=== PATIENT | male | born 1970 | race Caucasian/White ===

== ENCOUNTER 2017-10-13 08:51 | Outpatient (CLI) | payer OTHER ==
--- NOTE | 2017-10-13 10:11 | CT ---
CT CHEST WITH IV CONTRAST: HISTORY: Pancreatic cancer. Initial staging. FINDINGS: Each lung is well inflated. No focal mass is apparent. No enlarged lymph nodes are apparent within the mediastinum. Bovine origin of the great vessels from the aortic arch is apparent. Left subclavi an Port-A-Cath is partially visualized. Within the partially visualized upper abdomen, gallstones and enlargement of the spleen are apparent. Heterogeneous low density mass involving the pancreatic body and tail and retroperitoneal adenopath y are partially visualized. IMPRESSION: 1. No CT evidence of metastatic disease of the chest. 2. Abnormalities of the upper abdomen are partially visualized. MRI of the abdomen is pending. POS: [facility]
--- NOTE | 2017-10-13 12:22 | MRI ---
MRI OF THE ABDOMEN WITHOUT AND WITH CONTRAST: Date: 10/13/17 COMPARISON: Report from MRI abdomen dated 08/05/17. 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 TECHNIQUE: Multiplanar, multisequence MR images were obtained of the abdomen without and with IV contrast. FINDINGS: There is a large mass involving the body and tail of the pancreas. This mass currently measures 7.8 x 7.1 x 4.6 cm in size and distorts the anatomy of the pancreas. Compared to the prior report, this ap pears to have decreased in size. There is a nodule near the tail of the pancreas and the splenic hilum. This follows the spleen signal intensity on all obtained sequences and likely represents a splenule measuring 2.1 cm in size. There is a second nodule in the splenic hilum measuring 1.5 cm in size which could represent a small, mild ly enlarged lymph node. There are enlarged lymph nodes seen in the retroperitoneum measuring up to 2. 3 cm in size. No enlarged shady hepatis lymph nodes are seen at this time. There are gallstones in the gallbladder. No suspicious lesions are seen in the liver. The right adren al gland is unremarkable. The left adrenal gland is intimately associated with the pancreatic mass an d there may be involvement of the left adrenal gland by the mass. No focal splenic lesions are seen. No marrow signal abnormality is present. IMPRESSION: 1. Large pancreatic mass likely represents the patient's known neuroendocrine pancreatic cancer. Com pared to the prior report, this mass appears to have decreased in size. 2. Cholelithiasis. 3. Retroperitoneal adenopathy and possible enlarged lymph node in the splenic hilum. POS: [facility]
--- NOTE | 2017-10-13 14:28 | NM ---
RADIONUCLIDE BONE SCAN: Date: 10/13/17 HISTORY: Pancreatic cancer. Initial staging. FINDINGS: Slightly increased uptake involves the shoulder and feet with the appearance of degenerative changes. A single focus of markedly increased radiotracer uptake involves the anterior aspect of the left 6th rib. No fracture is reliably demonstrated on recent CT, although there is very subtle cortical irregu larity. Patient reports recent significant trauma to this area. IMPRESSION: Given the report of recent focal trauma to the left anterior chest, the single focus of abnormal upta ke likely represents a healing fracture of the anterior aspect of the left 6th rib. A solitary metast atic focus would be possible, but less likely. Please consider follow-up bone scan to evaluate for re solution. POS: [facility]
[2017-10-13] MEDS ORDERED: Iopamidol 370 76% 100 ML VIAL ONE (15:45)
== END 2017-10-13 08:52 | disposition home or self-care (01) ==
LOC: CT 08:51
PROVIDERS: ATTEND Internal Medicine Hematology & Oncology
DX: C25.4 Malignant neoplasm of endocrine pancreas (principal); C79.89 Secondary malignant neoplasm of other specified sites; K80.20 Calculus of gallbladder without cholecystitis without obstruction; R59.0 Localized enlarged lymph nodes
CPT/HCPCS: 71260; 74183; 78306; A9503

== ENCOUNTER 2017-12-09 08:35 | Outpatient (CLI) | payer OTHER ==
--- NOTE | 2017-12-09 13:15 | MRI ---
MR ABDOMEN WITH AND WITHOUT CONTRAST: HISTORY: Malignant neoplasm, endocrine/pancreas (C25.4). COMPARISON: MRI from 10/13/2017 TECHNIQUE: Multiplanar, multisequence MRI of the abdomen performed prior to and after the intravenous administra tion of contrast. FINDINGS: Using the same imaging and measurement plane as the comparison examination, the pancreatic body mass, within the posterior perirenal space, measures 4.2 x 2.6 x 3.3 cm (previously, 7.8 x 7.1 x 4.6 cm). This causes a desmoplastic reaction around the posterior pancreatic soft tissues. There is abnormal thickening of the left adrenal gland, which may be involved with a malignant process. The enhancing portion of the malignancy appears to really only measure 2 x 2.3 cm, with the rest of the portion be ing necrotic tissue or desmoplastic reaction. This is best found on the delayed contrast-enhanced se quence. The solid core is decreased from the comparison. The spleen is enlarged, measuring 16 cm in length. A splenule is present. Perirenal adenopathy has slightly improved, with the most prominent retroperitoneal and left periaortic lymph node measuring 1.2 cm in size (previously 1.4 cm, in short axis). The lymph node along the left diaphragmatic crura had previously measured 8 mm in short axis (now approximately 6 mm). The portal vein is patent. There appears to be debris and sludge within the gallbladder with calcified stones. No evidence of hepatic metastatic disease. The IVC is patent. The left and right renal veins are pa tent. The aortic contour is normal. The marrow signal is similar without definite evidence of metas tatic disease. No dilated loops of bowel in the abdomen. No hydronephrosis. No abnormal renal enhancing mass. IMPRESSION: 1. Continued size decrease of the pancreatic tail mass, extending into the posterior perirenal fat a nd enveloping the celiac artery and the splenic artery. The flow void in the splenic artery is maint ained. 2. Interval size decrease of periaortic and left crural adenopathy. 3. Suggestion of possible involvement of the left adrenal gland by malignant process. 4. No evidence of new metastatic disease. Overall, this is an improved study. POS: [facility]
[2017-12-09] MEDS ORDERED: Gadobenate Dimeglumine 529 MG/1 ML (20ML VIAL) ONE (16:24)
== END 2017-12-09 08:36 | disposition home or self-care (01) ==
LOC: MRI 08:35
PROVIDERS: ATTEND Internal Medicine Hematology & Oncology
DX: C25.4 Malignant neoplasm of endocrine pancreas (principal); C79.89 Secondary malignant neoplasm of other specified sites; R59.0 Localized enlarged lymph nodes
CPT/HCPCS: 74183; A9579

== ENCOUNTER 2018-02-16 09:55 | Outpatient (CLI) | payer OTHER ==
--- NOTE | 2018-02-16 13:54 | MRI ---
MRI OF ABDOMEN WITH AND WITHOUT CONTRAST: COMPARISON: Reference is made to prior MRI and CT exams dating back to 10/13/07. CLINICAL HISTORY: Central abdominal mass adjacent the pancreas. History of neuroendocrine tumor, followup. FINDINGS: As previously demonstrated, there is marked abnormal signal abutting the posterior body and extending left laterally to the posterior aspect of the pancreatic tail with a central region of heterogeneous enhancement grossly stable as 2 x 2.2 cm with surrounding relatively nonenhancing soft tissue signal abnormality of the posterior peripancreatic region which again abuts the anterior aspect of the body and lateral limb of the left adrenal gland. A 2.1 cm splenule about the splenic hilar region is sta ble. A 1l5 cm lymph node at the anterior aspect of the splenic hilar region abutting anterior aspect of the distal body and tail region of the pancreas is grossly stable. Left periaortic adenopathy wh ich is in a clustering morphology is grossly stable. Splenomegaly remains. Punctate nonspecific signal alteration of the anterior aspect of the spleen is stable, too small to further characterize. Punctate signal alteration medially within the right hep atic lobe is also stable, too small to further characterize. Infiltration of abnormal peripancreatic signal into the splenic hilar vasculature is grossly stable. Incidental note of cholelithiasis. No obvious focal marrow signal alteration is seen, regionally. S plenic varices remain and there is recanalization of the umbilical vein. Evaluation otherwise grossly stable. IMPRESSION: No significant interval detrimental change with regard to enhancing peripancreatic mass with prominen t surrounding infiltrative signal abnormality which again encases portions of the splenic hilar vascu lature. Surrounding adenopathy, indicating metastatic disease, is similar in appearance. IMPRESSION: 1. Redemonstration of splenomegaly findings that indicate portal hypertension. 2. Cholelithiasis. POS: [facility]
== END 2018-02-16 09:56 | disposition home or self-care (01) ==
LOC: MRI 09:55
PROVIDERS: ATTEND Internal Medicine Hematology & Oncology
DX: C25.4 Malignant neoplasm of endocrine pancreas (principal); C79.89 Secondary malignant neoplasm of other specified sites; R16.1 Splenomegaly, not elsewhere classified; K76.6 Portal hypertension; K80.20 Calculus of gallbladder without cholecystitis without obstruction
CPT/HCPCS: 74183

== ENCOUNTER 2018-04-27 08:40 | Outpatient (CLI) | payer OTHER ==
[2018-04-27] MEDS ORDERED: Gadobenate Dimeglumine 529 MG/1 ML (20ML VIAL) ONE (12:00)
== END 2018-04-27 08:41 | disposition home or self-care (01) ==
LOC: BICMRI 08:40
PROVIDERS: ATTEND Internal Medicine Hematology & Oncology
DX: C25.4 Malignant neoplasm of endocrine pancreas (principal); C79.89 Secondary malignant neoplasm of other specified sites; K86.9 Disease of pancreas, unspecified; I82.890 Acute embolism and thrombosis of other specified veins
CPT/HCPCS: 36415; 74183; 80053; 81003; 82024; 82248; 82533; 83615; 83690; 84100; 84436; 84443; 84550; 85025; A9579

== ENCOUNTER 2018-07-27 08:33 | Outpatient (CLI) | payer OTHER ==
[2018-07-27] MEDS ORDERED: Gadobenate Dimeglumine 529 MG/1 ML (20ML VIAL) ONE (12:07)
--- NOTE | 2018-07-27 12:34 | MRI ---
MRI OF THE PELVIS WITHOUT AND WITH CONTRAST: History: Malignant neoplasm pancreas. Secondary neoplasm of other unspecified sites. Comparison: MRI abdomen, 04-27-18; bone scan, 10-13-17. Technique: Multiplanar, multisequence MR images were obtained of the pelvis without and with IV contr ast. FINDINGS: The prostate is normal in size. No pelvic adenopathy is seen. No pelvic mass is identified. No marrow signal abnormality is present. IMPRESSION: No significant pelvic abnormality. POS: [facility]
--- NOTE | 2018-07-27 13:44 | MRI ---
MRI OF ABDOMEN WITHOUT AND WITH CONTRAST: Date: 07/27/18 COMPARISON: 04/27/18, 02/16/18, 12/09/17, 10/13/17. HISTORY: Neoplasm of exocrine portion of pancreas. Secondary malignant neoplasm of other unspecified site. TECHNIQUE: Multiplanar, multisequence MR images were obtained of the abdomen without and with IV contrast. FINDINGS: An abnormal area of enhancement and abnormal signal is seen along the posterior aspect of the pancrea s extending from the body towards the tail. On the current examination, this measures approximately 5 .4 x 3.2 x 3.3 cm in size. This measures differently than on the prior examination, but the measureme nts were not saved on the prior examinations to determine the exact plane of measurement on the prior examination. Grossly, the mass is similar in size. This mass still encases the celiac artery and abu ts the left adrenal gland. No pancreatic ductal dilatation is seen. The splenic vein cannot be follow ed to the region of the portal vein and is likely occluded by the pancreatic mass. There are prominen t varices in the abdomen. There are gallstones in the gallbladder. A tiny, subcentimeter cyst is seen in the right lobe of the liver. No suspicious enhancing liver lesions are seen. The spleen has decreased in sizes, measuring 1 7.1 cm in length, but is still enlarged. The kidneys and right adrenal gland are unremarkable. No abdominal or pelvic enlarged lymph nodes are seen. The previously seen enlarged lymph node in the retrocaval location shows no enlarged lymph nod e on this examination. Careful inspection of peripancreatic tissues and shady hepatis shows no enlarg ed lymph nodes in these locations. There is a round mass adjacent to the spleen which likely represents a splenule as it follows the sig nal intensity of the spleen on all obtained sequences. This measures 2.1 cm in size. No marrow signal abnormality is present. IMPRESSION: 1. Grossly stable pancreatic mass. 2. 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 3. The mass may involve the left adrenal gland. 4. Cholelithiasis. 5. No abdominal adenopathy. POS: [facility]
== END 2018-07-27 08:34 | disposition home or self-care (01) ==
LOC: BICMRI 08:33
PROVIDERS: ATTEND Internal Medicine Hematology & Oncology
DX: C25.4 Malignant neoplasm of endocrine pancreas (principal); C79.89 Secondary malignant neoplasm of other specified sites; R16.1 Splenomegaly, not elsewhere classified; I81 Portal vein thrombosis; K80.20 Calculus of gallbladder without cholecystitis without obstruction
CPT/HCPCS: 36415; 72197; 74183; 80053; 81001; 82248; 82533; 83615; 83690; 84100; 84436; 84443; 84550; 85025; A9579

== ENCOUNTER 2018-11-23 11:34 | Outpatient (CLI) | payer OTHER ==
[~2018-11-23 11:34] MED LIST: Iopamidol 370 76% 100 ML VIAL ONE
--- NOTE | 2018-11-23 15:21 | CT ---
CT OF THE SOFT TISSUES OF THE NECK AND THORAX WITH IV CONTRAST: INDICATION: History of pancreatic carcinoma status post immunotherapy and pancreatectomy with removal of the left adrenal gland, gallbladder, and spleen. COMPARISON: Prior MRI of the abdomen with and without contrast dated 07/27/[address] of the chest dated 2017. FINDINGS: NECK SOFT TISSUES: There is 1 small right posterior occipital/cervical lymph node on image 9 of series 12 that is not pa thologically enlarged. No pathologically enlarged lymphadenopathy is seen within the neck zones. The parotid, submandibular, and thyroid glands have a normal appearance. The visualized nasopharynx and oropharynx appear within normal limits. The remaining aerodigestive t ract is normal-appearing. THORAX: There is a left chest wall subclavian port projecting into the SVC. No mediastinal or hilar lymphade nopathy is evident. No axillary lymphadenopathy is evident. There is a small left pleural effusion with left basilar atelectasis. No suspicious pulmonary nodule is identified. There is a small calcified granuloma seen within the posterior right lower lobe on i mage 75 of series 2. The visualized upper abdomen demonstrates postsurgical change of a distal pancreatectomy and splenect mirella. There is residual spiculated mass seen just posterior to the pancreatic tail bed likely related to regional spread of disease on image 81 of series 2 measuring 3.8 x 3.8 cm. There is an enlarged precrural retroperitoneal lymph node on image 80 of series 2 measuring 1.6 cm. This previously measured 2.2 cm on the comparison CT evaluation dated 10/13/2017. The paraaortic retroperitoneal lymph nodes are slightly smaller than on the comparison MR examination with a left paraaortic lymph node previously measuring 1.7 cm now measures 1.0 cm on image 95 of ser ies 2. The aorta IVC lymph node measures 1.1 cm where it previously measured 1.2 cm. There is a 6 mm right hepatic lobe hypodensity likely reflecting a small cyst retrospectively seen on the comparison MR examination dated 07/27/2018 on image 18 of series 12. There is some mild inflammatory stranding seen near the operative site of the left upper quadrant. T here is a mild amount of retained stool within the colon. There is some debris within the laparotomy wound bed which is nonspecific and may reflect packing material. No suspicious osteolytic or osteoblastic lesion is grossly evident. There is scattered degenerative and osteoarthritic change. IMPRESSION: 1. No evidence of metastatic disease within the neck or thorax. There is a new small left pleural e ffusion which may be reactive related to patient's previous operative procedure in the left upper flaco drant where there was removal of the spleen and distal pancreas. There is some residual inflammatory stranding seen within the retroperitoneal fat of the left upper quadrant. 2. There is a residual spiculated mass within the left aspect of the anterior pararenal space measur ing 3.8 x 3.1 cm suspicious for residual malignancy within the pancreatic bed. 3. The enlarged lymph nodes of the upper retroperitoneum are slightly smaller than on comparison exa mination and may reflect sequelae of response to therapy. 4. Open laparotomy within the anterior abdominal wall with slightly hyperdense debris seen within th e wound that may reflect topical medication or packing material within the open wound. Recommend cor relation with the clinical exam. 5. Right hepatic cyst. POS: [facility]
== END 2018-11-23 11:35 | disposition home or self-care (01) ==
LOC: CT 11:34
PROVIDERS: ATTEND Internal Medicine Hematology & Oncology
DX: C25.4 Malignant neoplasm of endocrine pancreas (principal); C79.89 Secondary malignant neoplasm of other specified sites; J90 Pleural effusion, not elsewhere classified; R59.0 Localized enlarged lymph nodes; N28.89 Other specified disorders of kidney and ureter; K76.89 Other specified diseases of liver
CPT/HCPCS: 70491; 71260; 80053; 82248; 83615; 84100; 84436; 84443; 84550; Q9967

== ENCOUNTER 2018-12-21 08:04 | Outpatient (CLI) | payer OTHER ==
--- NOTE | 2018-12-21 12:45 | MRI ---
MRI OF THE ABDOMEN WITHOUT AND WITH CONTRAST: COMPARISON: 07/27/2018. HISTORY: Malignant neoplasm of the pancreas. TECHNIQUE: Multiplanar, multisequence MR images were obtained of the abdomen without and with IV contrast. FINDINGS: Interval surgery has been performed. A midline incision is seen. The spleen has been removed. The previously seen mass-like area along the posterior aspect of the pancreas is no longer visible. Licona juice, there is enhancement of the midline wound and in the peripancreatic region which may represent p ostsurgical scarring\granulation tissue. A measurement on this area of enhancement in the peripancre atic soft tissues cannot be given as this is diffusely scattered throughout the peripancreatic soft t issues and [id number]. The left adrenal gland cannot be definitely seen. The liver, gallbladder, right kidney, and right adrenal gland are unremarkable. There are prominent retroperitoneal lymph nodes which are unchanged compared to the prior examination measuring up to 1.9 cm in greatest dimension. No marrow signal abnormality is present. IMPRESSION: 1. There has been interval resection of the mass posterior to the pancreas and splenectomy. There i s enhancement adjacent to the pancreas which likely represents postsurgical granulation tissue. A re sidual mass cannot be definitely seen. However, given the enhancement and postsurgical change, a fol lowup MRI in 3-6 months is recommended to ensure that a recurrent mass is not developing. 2. Stable slightly prominent retroperitoneal lymph nodes. POS: [facility]
--- NOTE | 2018-12-21 12:59 | MRI ---
MRI OF THE PELVIS WITHOUT AND WITH CONTRAST: COMPARISON: 07/27/2018. HISTORY: Malignant neoplasm of the pancreas. Status post surgical resection. Evaluate for metastatic disease . TECHNIQUE: Multiplanar, multisequence MR images were obtained of the pelvis without and with IV contrast. FINDINGS: The inferior aspect of a midline skin incision is seen from interval surgery. No abnormality is seen within the pelvis. The prostate is normal in size. The seminal vessels are intact. No pelvic cezar opathy is seen. No marrow signal abnormality is present. IMPRESSION: Unremarkable exam. POS: [facility]
== END 2018-12-21 08:05 | disposition home or self-care (01) ==
LOC: CT 08:04
PROVIDERS: ATTEND Internal Medicine Hematology & Oncology
DX: C25.4 Malignant neoplasm of endocrine pancreas (principal); C79.89 Secondary malignant neoplasm of other specified sites; Z98.890 Other specified postprocedural states
CPT/HCPCS: 36415; 72197; 74183; 80053; 81003; 82024; 82150; 82248; 82533; 83615; 83690; 84100; 84436; 84443; 84550; 85025

== ENCOUNTER 2019-03-11 12:59 | Outpatient (CLI) | payer OTHER | END 2019-03-11 13:00 | disposition home or self-care (01) | LOC: RAD 12:59 | PROVIDERS: ATTEND Internal Medicine Hematology & Oncology | DX: Z53.9 Procedure and treatment not carried out, unspecified reason (principal) | CPT/HCPCS: 76140 ==

== ENCOUNTER 2019-10-18 07:20 | Outpatient (CLI) | payer OTHER ==
--- NOTE | 2019-10-18 10:05 | CT ---
CT OF THE CHEST, ABDOMEN AND PELVIS WITH IV CONTRAST INDICATION: History of pancreatic cancer; one-year follow-up; history of chemotherapy 4 years ago; cu rrently on immunotherapy; history of pancreatic tumor removal COMPARISON: CT of the neck and chest dated November 23, 2018 and MR of the abdomen and pelvis dated 2018. FINDINGS: CHEST: Lungs: No suspicious pulmonary nodules evident. There is a calcified granuloma in the right lower lob e which is stable. Pleural space: Small left pleural effusion has resolved. Mediastinum: No pathologically enlarged lymph nodes are evident. Axilla: No pathologically enlarged lymph nodes. ABDOMEN: Lung bases: Clear Liver: Hypodensity seen within the posterior right hepatic lobe measuring up to 5 to 6 mm is stable. Gallbladder: Cholecystectomy Pancreas: Partial pancreatectomy. Spiculated mass seen within the resection bed of the pancreas on prior CT of the neck soft tissues and chest and abdomen has intervally decreased in size now measuring 1.4 x 1.2 cm were previously measured 3.9 x 3.1 cm. No new masses identified. Adrenal glands: Normal. Spleen: Surgically absent Kidneys and ureters: Normal. No hydronephrosis. Vasculature: Normal. Lymph nodes of the abdomen and pelvis:The enlarged pre crural lymph node on the prior CT examination has decreased in size, previously measuring 1.6 cm, now measuring 6 mm. The previously seen enlarged left para-aortic lymph node on image 57 of series 2 now measures 8 mm where it previously me asured 1.4 cm. An additional enlarged left-sided periaortic lymph node on image 69 of series 2 previously measuring 1 cm now measures 9 mm. An aortocaval lymph node on image 68 of series 2 previou sly measuring 1.1 cm now measures 9 mm. There is an enlarged portacaval lymph node measuring 1.4 cm where previously it measured 1.7 cm. There is an enlarged shady hepatis lymph node previously measuri ng 1.4 cm now measuring 1.3 cm. There is an enlarged distal left periaortic lymph node measuring 1.2 cm which previously on the MR the pelvis dated December 21, 2018 measured 9 mm. There is a right com mon iliac node previously measuring 9.7 mm now measuring 17.5 mm. There is a right external iliac lymph node previously measuring 8 mm now measuring 6 mm. Free fluid in abdomen:No free fluid is evident. PELVIS: Small and large bowel: There is a moderate amount retained stool within the colon. Appendix:Normal Bladder: Normal. Rectal and perirectal soft tissues:Normal. Reproductive structures: Normal. Free fluid in pelvis: No free fluid is evident. Osseous structures: No acute osseous abnormality. No destructive osteolytic or osteoblastic lesion i s identified. There is scattered degenerative and osteoarthritic changes. Soft tissues:Normal. IMPRESSION: 1. Findings consistent with response to therapy: Improving disease. The spiculated mass seen within t he resection cavity of the distal pancreas has decreased in size. There is also significant decrease in size of a number of enlarged lymph nodes within the upper abdomen as detailed above. A fe w lymph nodes are mildly enlarged from the comparison MR examination dated December 21, 2018. Specifically the distal periaortic and common iliac lymph nodes within the lower abdomen and pelvis. Continued CT follow-up is recommended. 2. No evidence of metastatic disease to the thorax. Resolution of the previously seen left-sided pleu ral effusion.
[2019-10-18] MEDS ORDERED: Iopamidol 370 76% 100 ML VIAL ONE (13:18)
== END 2019-10-18 07:21 | disposition home or self-care (01) ==
LOC: CT 07:20
PROVIDERS: ATTEND Internal Medicine Hematology & Oncology
DX: C25.4 Malignant neoplasm of endocrine pancreas (principal); C79.89 Secondary malignant neoplasm of other specified sites; R59.0 Localized enlarged lymph nodes
CPT/HCPCS: 36415; 71260; 74177; 80053; 82024; 82150; 82248; 82533; 83615; 83690; 84100; 84436; 84443; 84550; 85025; Q9967

== ENCOUNTER 2020-03-13 07:54 | Outpatient (CLI) | payer OTHER ==
--- NOTE | 2020-03-13 11:45 | MRI ---
MRI ABDOMEN WITH AND WITHOUT CONTRAST: HISTORY: C25.4, malignant neoplasm of endocrine pancreas. COMPARISON: CT 10/18/2019. FINDINGS: Similar appearance of prior distal pancreatectomy involving the pancreatic body and tail. No new abn ormal enhancing mass in the resection cavity. No new adenopathy. There is some scar formation along the celiac trunk extending along the left gastric artery and common hepatic arteries. Size unchanged left-sided retroperitoneal periaortic lymph nodes. No new abnormally enhancing or cor tically enlarging lymph nodes. Liver is unremarkable. Prior splenectomy. Mild diastasis recti. Background marrow signal is normal. On the large field of view T2 weighted imaging sequence, which is the only sequence that demonstrates the left iliac lymph nodes, there has been absolutely no enlargement from the 10/18/2019 exam. No hydronephrosis. No abnormal renal enhancing mass. The aortic contour was normal. Previously described spiculated mass in the resection cavity is consistent with scar material and miracle ris and has decreased in size. No solid enhancing mass. The precaval lymph node measures 11 mm in short axis and previously measured 15 mm. Portocaval lymph node measures 9 mm in short axis previously 13 mm. IMPRESSION: IRECIST: Partial response ([place]). There has been progressive size decrease of the precaval and shady h epatis lymph nodes from the comparison examinations. The previously described mass within the resect ion cavity is not appreciated. There is only small volume scar material remaining. Of note, the onl y thing keeping the patient from a CR (complete response to therapy) is the size of the precaval lymp h node and left iliac lymph nodes, although these may never reach sub-10 mm threshold for complete re sponse due to reactive hyperplasia. POS: [facility]
[2020-03-13] MEDS ORDERED: Magnevist 469MG/ML 20 ML VIAL ONE (13:03)
== END 2020-03-13 07:55 | disposition home or self-care (01) ==
LOC: MRI 07:54
PROVIDERS: ATTEND Internal Medicine Hematology & Oncology
DX: C25.4 Malignant neoplasm of endocrine pancreas (principal); C79.89 Secondary malignant neoplasm of other specified sites; R59.0 Localized enlarged lymph nodes
CPT/HCPCS: 36415; 74183; 80053; 82024; 82150; 82248; 82533; 83615; 83690; 84100; 84436; 84443; 84550; 85025; A9579

== ENCOUNTER 2020-04-24 07:57 | Outpatient (CLI) | payer OTHER ==
--- NOTE | 2020-04-24 08:48 | ULT ---
BILATERAL CAROTID DUPLEX ULTRASOUND: HISTORY: Occlusion and stenosis of bilateral carotid arteries. TECHNIQUE: Grayscale, color-flow and spectral Doppler ultrasound imaging of the extracranial carotid artery syst ems was performed bilaterally. FINDINGS: No significant plaque formation on interval wall thickening is seen on either side. The peak systolic velocity in the right ICA measures 98 cm/s with an end-diastolic velocity of 34 cm/ s and a systolic ratio of 0.92. The peak systolic velocity in the left ICA measures 75 cm/s with an end-diastolic velocity of 31 cm/s and a systolic ratio of 0.69. Flow in both vertebral arteries remains antegrade. IMPRESSION: No evidence of hemodynamically significant stenosis.
== END 2020-04-24 07:58 | disposition home or self-care (01) ==
LOC: BICULT 07:57
PROVIDERS: ATTEND Internal Medicine Hematology & Oncology
DX: I65.23 Occlusion and stenosis of bilateral carotid arteries (principal)
CPT/HCPCS: 36415; 80053; 82024; 82150; 82248; 82533; 83615; 84100; 84436; 84443; 84550; 85025; 93880

== ENCOUNTER 2021-01-29 08:01 | Outpatient (CLI) | payer OTHER ==
[2021-01-29] MEDS ORDERED: Iopamidol 370 76% 50 ML VIAL FS ONE (10:35)
[2021-01-29] MEDS ORDERED: Iopamidol 370 76% 100 ML VIAL ONE (10:35)
== END 2021-01-29 08:02 | disposition home or self-care (01) ==
LOC: CT 08:01
PROVIDERS: ATTEND Internal Medicine Hematology & Oncology
DX: C25.4 Malignant neoplasm of endocrine pancreas (principal); C79.89 Secondary malignant neoplasm of other specified sites; R59.0 Localized enlarged lymph nodes; R91.1 Solitary pulmonary nodule; Z90.410 Acquired total absence of pancreas; Z90.49 Acquired absence of other specified parts of digestive tract
CPT/HCPCS: 71260; 74177; 82565; Q9967

== ENCOUNTER 2021-02-02 08:19 | Outpatient (CLI) | payer OTHER | END 2021-02-02 08:20 | disposition home or self-care (01) | LOC: PET 08:19 | PROVIDERS: ATTEND Internal Medicine Hematology & Oncology | DX: C25.9 Malignant neoplasm of pancreas, unspecified (principal); C77.8 Secondary and unspecified malignant neoplasm of lymph nodes of multiple regions | CPT/HCPCS: 78815; A9552 ==

== ENCOUNTER 2021-04-03 07:45 | Outpatient (CLI) | payer OTHER ==
[2021-04-03] MEDS ORDERED: Iopamidol 370 76% 100 ML VIAL ONE (09:22)
== END 2021-04-03 07:46 | disposition home or self-care (01) ==
LOC: CT 07:45
PROVIDERS: ATTEND Internal Medicine Hematology & Oncology
DX: C25.4 Malignant neoplasm of endocrine pancreas (principal); C79.89 Secondary malignant neoplasm of other specified sites; R59.0 Localized enlarged lymph nodes; K76.0 Fatty (change of) liver, not elsewhere classified; Z98.890 Other specified postprocedural states
CPT/HCPCS: 71260; 74177

== ENCOUNTER 2021-06-08 08:40 | Outpatient (CLI) | payer OTHER ==
[2021-06-08] MEDS ORDERED: Iopamidol 370 76% 100 ML VIAL ONE (11:09)
== END 2021-06-08 08:41 | disposition home or self-care (01) ==
LOC: CT 08:40
PROVIDERS: ATTEND Internal Medicine Hematology & Oncology
DX: C7A.8 Other malignant neuroendocrine tumors (principal); C79.89 Secondary malignant neoplasm of other specified sites; R19.03 Right lower quadrant abdominal swelling, mass and lump; Z98.890 Other specified postprocedural states
CPT/HCPCS: 74177; Q9967

== ENCOUNTER 2021-08-21 09:51 | Outpatient (CLI) | payer OTHER | END 2021-08-21 09:52 | disposition home or self-care (01) | LOC: BICCT 09:51 | PROVIDERS: ATTEND Internal Medicine Hematology & Oncology | DX: C7A.8 Other malignant neuroendocrine tumors (principal); C79.89 Secondary malignant neoplasm of other specified sites; R91.1 Solitary pulmonary nodule; R59.0 Localized enlarged lymph nodes; Z90.49 Acquired absence of other specified parts of digestive tract; Z90.81 Acquired absence of spleen | CPT/HCPCS: 71260; 74177 ==